=== PATIENT | female | born 1950 | race Caucasian/White ===

== ENCOUNTER 2021-03-23 11:03 | Inpatient (IN) ==
[2021-03-23] MEDS ORDERED: Benzonatate 100 MG CAPSULE PO PRN (19:37)
[2021-03-23] MEDS ORDERED: tiZANidine 4 MG TABLET PO PRN (19:37)
[2021-03-23] MEDS ORDERED: *HR* Dextrose 50 % in Water (Vial) 50 ML VIAL IVP PRN (19:44)
[2021-03-23] MEDS ORDERED: Dextrose Gel 15 GM/37.5 ML TUBE PO PRN ×2 (19:44)
[2021-03-23] MEDS ORDERED: D5% in Water 1,000 ML IVC PRN (19:44)
[2021-03-23] MEDS ORDERED: metOLazone 2.5 MG TABLET PO SCH (21:00)
[2021-03-23] MEDS ORDERED: Fluticasone Propionate Nasal 50 MCG/SPRAY BOTTLE NS PRN (22:05)
[2021-03-23] MEDS: ALPRAZolam 0.5 MG TABLET PO PRN (22:16)
[2021-03-23] MEDS: Apixaban 5 MG TABLET PO SCH (22:17)
[2021-03-23] MEDS: Torsemide 20 MG TABLET PO SCH (22:17)
[2021-03-23] MEDS: Gabapentin 300 MG CAPSULE PO SCH (22:17)
[2021-03-23] MEDS: Carbidopa/Levodopa ER 50/200 TABLET PO SCH (22:17)
[2021-03-23] MEDS: Doxycycline 100 MG CAPSULE PO SCH (22:18)
[2021-03-23] MEDS: Acetaminophen 325 MG TABLET PO PRN (22:33)
[2021-03-24] MEDS: metOLazone 5 MG TABLET PO SCH ×3 (01:13→20:29)
[2021-03-24] MEDS: Gabapentin 300 MG CAPSULE PO SCH ×2 (08:34→20:29)
[2021-03-24] MEDS: allopurinoL 100 MG TABLET PO SCH (08:35)
[2021-03-24] MEDS: Loratadine 10 MG TABLET PO SCH (08:35)
[2021-03-24] MEDS: Metoprolol XL (24 HR) Succ 25 MG TAB.ER.24H PO SCH (08:35)
[2021-03-24] MEDS: methIMAzole 5 MG TABLET PO SCH (08:35)
[2021-03-24] MEDS: Cholecalciferol (D-3) 1,000 UNIT (25MCG) TABLET PO SCH (08:35)
[2021-03-24] MEDS: Spironolactone 12.5 MG TABLET PO SCH (08:35)
[2021-03-24] MEDS: Amoxicillin/Clavulanate 500 MG TABLET PO SCH ×2 (08:35→17:16)
[2021-03-24] MEDS: Torsemide 20 MG TABLET PO SCH ×2 (08:35→17:12)
[2021-03-24] MEDS: Doxycycline 100 MG CAPSULE PO SCH ×2 (08:36→20:29)
[2021-03-24] MEDS: Apixaban 5 MG TABLET PO SCH ×2 (08:36→20:30)
[2021-03-24] MEDS: Carbidopa/Levodopa ER 50/200 TABLET PO SCH ×2 (08:36→20:30)
[2021-03-24] MEDS: Magnesium Oxide 400 MG TABLET PO SCH (08:36)
[2021-03-24] MEDS: Insulin LISPRO 300 UNITS/3 ML VIAL SUBQ SCH ×3 (08:51→16:36)
[2021-03-24] MEDS: ALPRAZolam 0.5 MG TABLET PO PRN ×3 (09:02→23:15)
[2021-03-24] MEDS: Acetaminophen 325 MG TABLET PO PRN ×3 (09:02→22:52)
[2021-03-25] MEDS: Acetaminophen 325 MG TABLET PO PRN ×2 (08:38→18:02)
[2021-03-25] MEDS: Spironolactone 12.5 MG TABLET PO SCH (08:38)
[2021-03-25] MEDS: Amoxicillin/Clavulanate 500 MG TABLET PO SCH ×2 (08:39→17:55)
[2021-03-25] MEDS: Magnesium Oxide 400 MG TABLET PO SCH (08:39)
[2021-03-25] MEDS: metOLazone 5 MG TABLET PO SCH ×2 (08:39→20:01)
[2021-03-25] MEDS: ALPRAZolam 0.5 MG TABLET PO PRN ×2 (08:39→21:11)
[2021-03-25] MEDS: Doxycycline 100 MG CAPSULE PO SCH ×2 (08:39→20:01)
[2021-03-25] MEDS: Loratadine 10 MG TABLET PO SCH (08:40)
[2021-03-25] MEDS: methIMAzole 5 MG TABLET PO SCH (08:40)
[2021-03-25] MEDS: allopurinoL 100 MG TABLET PO SCH (08:40)
[2021-03-25] MEDS: Gabapentin 300 MG CAPSULE PO SCH ×2 (08:40→20:02)
[2021-03-25] MEDS: Cholecalciferol (D-3) 1,000 UNIT (25MCG) TABLET PO SCH (08:40)
[2021-03-25] MEDS: Carbidopa/Levodopa ER 50/200 TABLET PO SCH ×2 (08:41→20:01)
[2021-03-25] MEDS: Torsemide 20 MG TABLET PO SCH ×2 (08:41→17:56)
[2021-03-25] MEDS: Apixaban 5 MG TABLET PO SCH ×2 (08:41→20:02)
[2021-03-25] MEDS: Metoprolol XL (24 HR) Succ 25 MG TAB.ER.24H PO SCH (08:41)
[2021-03-25] MEDS: Insulin LISPRO 300 UNITS/3 ML VIAL SUBQ SCH ×3 (08:42→17:56)
[2021-03-26] MEDS: Acetaminophen 325 MG TABLET PO PRN ×3 (02:22→18:28)
[2021-03-26 07:44] LABS: Hematocrit 45.9 % (35.3-44.9); Hemoglobin 14.9 g/dL (11.5-15.4); Mean Corpuscular HGB Conc 32.5 g/dL (31.6-35.5); Mean Corpuscular Hemoglobin 30.8 pg (28.0-33.3); Mean Platelet Volume 9.3 fL (9.4-12.4); Platelet Count 340 K/mcL (140-400); Red Blood Count 4.83 M/mcL (3.82-4.97); Red Cell Distribution Width 14.9 % (11.5-14.5); White Blood Count 7.9 K/mcL (4.3-11.1)
[2021-03-26 08:05] LABS: Calcium 9.7 mg/dL (8.6-10.3)
[2021-03-26] MEDS: methIMAzole 5 MG TABLET PO SCH (09:18)
[2021-03-26] MEDS: Gabapentin 300 MG CAPSULE PO SCH ×2 (09:18→21:12)
[2021-03-26] MEDS: Cholecalciferol (D-3) 1,000 UNIT (25MCG) TABLET PO SCH (09:18)
[2021-03-26] MEDS: Metoprolol XL (24 HR) Succ 25 MG TAB.ER.24H PO SCH (09:18)
[2021-03-26] MEDS: allopurinoL 100 MG TABLET PO SCH (09:19)
[2021-03-26] MEDS: Spironolactone 12.5 MG TABLET PO SCH (09:19)
[2021-03-26] MEDS: Magnesium Oxide 400 MG TABLET PO SCH (09:19)
[2021-03-26] MEDS: Apixaban 5 MG TABLET PO SCH ×2 (09:19→21:12)
[2021-03-26] MEDS: Loratadine 10 MG TABLET PO SCH (09:19)
[2021-03-26] MEDS: Torsemide 20 MG TABLET PO SCH ×2 (09:19→18:29)
[2021-03-26] MEDS: Doxycycline 100 MG CAPSULE PO SCH ×2 (09:19→21:12)
[2021-03-26] MEDS: metOLazone 5 MG TABLET PO SCH ×2 (09:20→21:12)
[2021-03-26] MEDS: Amoxicillin/Clavulanate 500 MG TABLET PO SCH ×2 (09:20→18:36)
[2021-03-26] MEDS: Insulin LISPRO 300 UNITS/3 ML VIAL SUBQ SCH ×3 (09:21→18:36)
[2021-03-26] MEDS: Carbidopa/Levodopa ER 50/200 TABLET PO SCH ×2 (09:21→21:12)
[2021-03-26] MEDS: ALPRAZolam 0.5 MG TABLET PO PRN ×2 (13:50→22:46)
[2021-03-26] MEDS ORDERED: (Dulaglutide [Trulicity] 1.5 MG/0.5 ML Pen.Injctr) SQ SCH (19:37)
[2021-03-27] MEDS: Acetaminophen 325 MG TABLET PO PRN ×2 (06:10→16:34)
[2021-03-27] MEDS: metOLazone 5 MG TABLET PO SCH ×2 (08:18→19:52)
[2021-03-27] MEDS: methIMAzole 5 MG TABLET PO SCH (08:18)
[2021-03-27] MEDS: Doxycycline 100 MG CAPSULE PO SCH ×2 (08:19→19:51)
[2021-03-27] MEDS: Gabapentin 300 MG CAPSULE PO SCH ×2 (08:19→19:52)
[2021-03-27] MEDS: ALPRAZolam 0.5 MG TABLET PO PRN ×2 (08:19→19:58)
[2021-03-27] MEDS: Loratadine 10 MG TABLET PO SCH (08:19)
[2021-03-27] MEDS: Cholecalciferol (D-3) 1,000 UNIT (25MCG) TABLET PO SCH (08:19)
[2021-03-27] MEDS: allopurinoL 100 MG TABLET PO SCH (08:19)
[2021-03-27] MEDS: Amoxicillin/Clavulanate 500 MG TABLET PO SCH ×2 (08:20→16:34)
[2021-03-27] MEDS: Magnesium Oxide 400 MG TABLET PO SCH (08:20)
[2021-03-27] MEDS: Carbidopa/Levodopa ER 50/200 TABLET PO SCH ×2 (08:20→19:51)
[2021-03-27] MEDS: Apixaban 5 MG TABLET PO SCH ×2 (08:20→19:52)
[2021-03-27] MEDS: Spironolactone 12.5 MG TABLET PO SCH (08:20)
[2021-03-27] MEDS: Torsemide 20 MG TABLET PO SCH ×2 (08:20→16:35)
[2021-03-27] MEDS: Metoprolol XL (24 HR) Succ 25 MG TAB.ER.24H PO SCH (08:20)
[2021-03-27] MEDS: Insulin LISPRO 300 UNITS/3 ML VIAL SUBQ SCH ×3 (08:21→17:18)
[2021-03-27] MEDS: *HR* HYDROcodone/Acet 5/325 mg TABLET PO PRN (19:58)
[2021-03-27 20:14] VITALS: TEMP 98.2
[2021-03-28] MEDS: *HR* HYDROcodone/Acet 5/325 mg TABLET PO PRN ×2 (06:54→15:18)
[2021-03-28 08:07] VITALS: BP 130/80; PULSE 99
[2021-03-28] MEDS: Spironolactone 12.5 MG TABLET PO SCH (08:40)
[2021-03-28] MEDS: metOLazone 5 MG TABLET PO SCH (08:40)
[2021-03-28] MEDS: Gabapentin 300 MG CAPSULE PO SCH (08:40)
[2021-03-28] MEDS: Apixaban 5 MG TABLET PO SCH (08:40)
[2021-03-28] MEDS: Doxycycline 100 MG CAPSULE PO SCH (08:40)
[2021-03-28] MEDS: Magnesium Oxide 400 MG TABLET PO SCH (08:40)
[2021-03-28] MEDS: Torsemide 20 MG TABLET PO SCH (08:40)
[2021-03-28] MEDS: Carbidopa/Levodopa ER 50/200 TABLET PO SCH (08:40)
[2021-03-28] MEDS: methIMAzole 5 MG TABLET PO SCH (08:41)
[2021-03-28] MEDS: allopurinoL 100 MG TABLET PO SCH (08:41)
[2021-03-28] MEDS: Cholecalciferol (D-3) 1,000 UNIT (25MCG) TABLET PO SCH (08:41)
[2021-03-28] MEDS: Amoxicillin/Clavulanate 500 MG TABLET PO SCH (08:41)
[2021-03-28] MEDS: Metoprolol XL (24 HR) Succ 25 MG TAB.ER.24H PO SCH (08:41)
[2021-03-28] MEDS: Loratadine 10 MG TABLET PO SCH (08:41)
[2021-03-28] MEDS: Insulin LISPRO 300 UNITS/3 ML VIAL SUBQ SCH ×2 (08:45→11:17)
[2021-03-28 09:29] VITALS: RESP 18; O2SAT 99
[2021-03-28] MEDS ORDERED: Insulin LISPRO 300 UNITS/3 ML VIAL SUBQ ONE ×2 (11:13→14:32)
[2021-03-28] MEDS: ALPRAZolam 0.5 MG TABLET PO PRN (12:42)
== END 2021-03-28 16:01 | disposition home health service (06) | DRG 945 ==
LOC: INPPIK 21:42
PROVIDERS: ADMIT Family Medicine; ATTEND Family Medicine